=== PATIENT | female | born 1960 | race Caucasian/White ===

== ENCOUNTER 2017-08-20 19:43 | Outpatient (CLI) | payer MEDICAID ==
[2015-12-24 07:50] VITALS: BMI 28.4
[~2017-08-20 19:43] MED LIST: BUPROPION XL300 MG PO; HYZAAR 100-25 T1 TAB PO; KLONOPIN0.5 MG PO; MOTRIN600 MG PO; NORVASC5 MG PO; PERCOCET 5-3251 TAB PO; PROTONIX40 MG PO; PROZAC40 MG PO; ULTRAM ER300 MG PO; ZOCOR40 MG PO
== END 2017-08-20 19:45 | disposition home or self-care (01) ==
LOC: D.MAMMO 19:43
DX: Z12.31 Encounter for screening mammogram for malignant neoplasm of breast (principal)

== ENCOUNTER 2019-02-03 08:00 | Outpatient (CLI) | payer MEDICARE ==
[2015-12-24 07:50] VITALS: BMI 28.4
== END 2019-02-03 23:59 | disposition home or self-care (01) ==
LOC: D.MAMMO 08:00
PROVIDERS: ATTEND Emergency Medicine
DX: Z12.31 Encounter for screening mammogram for malignant neoplasm of breast (principal)

== ENCOUNTER 2020-02-03 17:06 | Emergency (ER) | payer MEDICARE ==
[~2020-02-03] VITALS: Ht 162.6 cm; Wt 105.0 kg
[2020-02-03 17:26] VITALS: BP 181/96; Ht 162.6 cm; Wt 105.0 kg
[2020-02-03 18:47] LABS: BASOPHILS 0.3 % (0-2); EOSINOPHILS 0.6 % (0-7); HEMATOCRIT 38.6 % (36.0-48.0); HEMOGLOBIN 13.3 g/dL (12-16); IMMATURE GRANULOCYTES 0.4 % (0-5); LYMPHOCYTES 25.8 % (15-50); MCHC 34.5 g/dL (31.0-37.0); MCV 87.1 fL (80.0-100.0); MEAN PLATELET VOLUME 8.9 fL (7.4-10.4); MONOCYTES 9.6 % (2-11); NEUTROPHILS 63.3 % (40-80); PLATELET COUNT 328 10x3/uL (130-400); RBC 4.43 10x6/uL (4.00-5.40); RDW 13.4 % (11.5-14.5); WBC 7.9 10x3/uL (4.8-10.8)
[2020-02-03 18:53] LABS: APTT 24.7 SECONDS (22.8-39.4); INR 0.95 (0.85-1.17); PROTIME 12.6 SECONDS (11.6-15.0)
[2020-02-03 18:54] LABS: CALC OSMOLALITY 267 mosm/kg (275-300); CALCIUM 8.4 mg/dL (8.5-10.1); CARBON DIOXIDE 23.2 mmol/L (21.0-32.0); CHLORIDE - SERUM 98 mmol/L (98-107); CREATININE - SERUM 0.6 mg/dL (0.6-1.3); GLUCOSE 103 mg/dL (74-106); POTASSIUM - SERUM 3.2 mmol/L (3.5-5.1); SODIUM 135 mmol/L (136-145); UREA NITROGEN 7 mg/dL (7-18); eGFR NON AFRICAN AMERICAN > 90 mL/min (90-120)
[2020-02-03 19:37] LABS: ALBUMIN 4.1 g/dL (3.4-5.0); ALKALINE PHOSPHATASE 86 U/L (30-120); ALT (SGPT) 28 U/L (10-68); BILIRUBIN - TOTAL 0.49 mg/dL (0.2-1.3); CKMB 4.1 U/L (0.0-3.6); CREATINE KINASE 183 UL (21-215); FERRITIN 76 ng/mL (3-244); PRO BNP 317 pg/mL (0-125); PROTEIN - SERUM 7.2 g/dL (6.4-8.2)
[2020-02-03 19:43] LABS: C-REACTIVE PROTEIN 0.2 mg/dL (0.0-0.9); TROPONIN-I < 0.017 ng/mL (0.000-0.060)
== END 2020-02-03 22:11 | disposition left against medical advice (07) ==
LOC: D.ER 17:06
PROVIDERS: Family Medicine
DX: J11.1 Influenza due to unidentified influenza virus with other respiratory manifestations (principal); Z53.29 Procedure and treatment not carried out because of patient's decision for other reasons

== ENCOUNTER 2020-10-24 05:17 | Day surgery (SDC) | payer MEDICARE ==
[~2020-10-24] VITALS: Ht 162.6 cm; Wt 95.0 kg
--- NOTE | ~2020-10-24 | OP ---
PATIENT NAME: MAGEN FAIRCHILD MEDICAL RECORD: [id number] :60 LOCATION:D.OPS ADMISSION DATE: SURGEON: SALVATORE WATST DPM DATE OF OPERATION: 10/24/2020 PREOPERATIVE DIAGNOSES: 1. Hallux abducto valgus, left foot. 2. Instability, left first metatarsal-cuneiform joint. POSTOPERATIVE DIAGNOSES: 1. Hallux abducto valgus, left foot. 2. Instability, left first metatarsal-cuneiform joint. PROCEDURES: 1. Sifuentes bunionectomy, left foot. 2. First metatarsal-cuneiform joint fusion, left foot. ANESTHESIA: General anesthesia with intraoperative local around the first ray of the left foot utilizing 20 cc of 1:1 mix of lidocaine and Marcaine plain. HEMOSTASIS: Left thigh tourniquet at 330 mmHg. PREOPERATIVE DETAILS: The patient was taken to the OR and placed on the operating table in a supine position followed by induction of general anesthesia followed by infiltration of local anesthetic around the first ray of the left foot. Left extremity was then prepped and draped in the usual aseptic technique followed by exsanguination and inflation of tourniquet. PROCEDURE #1: 1. Sifuentse bunionectomy, left foot. A #15 blade was used to create an incision from the dorsal aspect of the medial cuneiform distally to the base of the proximal phalanx of the hallux. The incision was deepened down through subcutaneous tissue, being sure to avoid all vital structures. Dissection was carried down to the first MPJ where an inverted L capsulotomy was performed. The medial capsular flap was reflected and the head of the first metatarsal was delivered. A sagittal saw was used to resect the medial eminence. Attention was directed to the first interspace where a lateral release was performed. 2. Fusion left first metatarsal-cuneiform joint. The incision as described in #1 was utilized. The dissection was carried down through deep tissue. Periosteal incision was made and the first metatarsal-cuneiform joint was delivered. A sagittal saw was used to resect the joint. Temporary fixation was placed. A 5-hole plate with one screw passing through the plate across the fusion site under rigid fixation. C-arm was used to verify good placement as well as alignment of the first ray. Wound was flushed. The periosteum was repaired with 2-0 Vicryl, the subcutaneous tissue with 4-0 Rapide and the skin was closed with 4-0 Rapide in a subcuticular technique followed by Dermabond, Adaptic, 4 x 4 and Conform were used to dress the wound followed by a modified Diaz compression dressing. The tourniquet was deflated. POSTOPERATIVE DETAILS: The patient tolerated the procedure well and left the OR with vital signs stable and vascular status at preoperative levels. The patient was transported to recovery per anesthesia in stable condition. TRANSINT:[id number] Voice Confirmation ID: [id number] DOCUMENT ID: [id number] OPERATIVE REPORT [id number] MAGEN FAIRCHILD MCKAY DPM CC: [id number] DICTATION DATE: 10/24/2044 INSPECTOR FINAL ASSEMBLY ELECTRICAL: 10/24/20 1045 [facility] [address] [place] [address]
[~2020-10-24 05:17] MED LIST changes: +BACLOFEN10 MG PO; +FUROSEMIDE20 MG PO; +KLONOPIN1 MG PO; +LAMICTAL100 MG PO; +LIPITOR40 MG PO; +MOBIC7.5 MG PO; +NEURONTIN600 MG PO; +PROZAC20 MG PO; +TIROSINT50 MCG PO; +TRAZODONE HCL150 MG PO; +ZYLOPRIM300 MG PO
[2020-10-24 05:53] LABS: EOSINOPHILS 4.9 % (0-7); HEMATOCRIT 38.2 % (36.0-48.0); HEMOGLOBIN 12.5 g/dL (12-16); LYMPHOCYTES 25.4 % (15-50); MCH 28.9 pg (26.0-34.0); MCHC 32.6 g/dL (31.0-37.0); MCV 88.7 fL (80.0-100.0); MEAN PLATELET VOLUME 7.3 fL (7.4-10.4); MONOCYTES 10.3 % (2-11); NEUTROPHILS 58.4 % (40-80); PLATELET COUNT 284 10x3/uL (130-400); RBC 4.31 10x6/uL (4.00-5.40); WBC 7.8 10x3/uL (4.8-10.8)
[2020-10-24 06:13] LABS: ANION GAP 13.5 mmol/L (8-16); CARBON DIOXIDE 27.9 mmol/L (21.0-32.0); POTASSIUM - SERUM 3.4 mmol/L (3.5-5.1)
[2020-10-24 06:34] VITALS: BP 131/59; Ht 162.6 cm; Wt 95.0 kg
== END 2020-10-24 10:25 | disposition home or self-care (01) ==
LOC: D.OPS 05:17
PROVIDERS: Anesthesiology; ATTEND Podiatrist
DX: M20.12 Hallux valgus (acquired), left foot (principal); M25.375 Other instability, left foot; I10 Essential (primary) hypertension; F17.200 Nicotine dependence, unspecified, uncomplicated